=== PATIENT | male | born 2005 | race Caucasian/White ===

== ENCOUNTER 2023-09-10 08:48 | Emergency (ER) | payer SELFPAY ==
[~2023-09-10] VITALS: Ht 182.9 cm; Wt 75.7 kg
[2023-09-10 09:02] VITALS: BP 148/80; PULSE 94; RESP 18; TEMP 98.2; O2SAT 97
[2023-09-10 10:10] VITALS: BP 132/62; PULSE 85; RESP 16; O2SAT 98
== END 2023-09-10 10:10 | disposition home or self-care (01) ==
LOC: ER 08:48
DX: S69.91XA Unspecified injury of right wrist, hand and finger(s), initial encounter (principal); X58.XXXA Exposure to other specified factors, initial encounter; Y93.89 Activity, other specified; Y92.89 Other specified places as the place of occurrence of the external cause; Y99.8 Other external cause status
CPT/HCPCS: 99283; 73130-RT